=== PATIENT | male | born 1975 | race Caucasian/White ===

== ENCOUNTER 2017-12-17 18:55 | Emergency (ER) | payer MEDICARE, MEDICAID ==
[~2017-12-17] VITALS: Ht 175.3 cm; Wt 122.8 kg
[2017-12-17 18:57] VITALS: BP 127/83
== END 2017-12-17 19:32 | disposition home or self-care (01) ==
LOC: ED 19:04
DX: F32.9 Major depressive disorder, single episode, unspecified (principal); Z72.9 Problem related to lifestyle, unspecified; F90.9 Attention-deficit hyperactivity disorder, unspecified type; F84.0 Autistic disorder
CPT/HCPCS: 99283